=== PATIENT | male | born 1970 | race African-American/Black ===

== ENCOUNTER 2020-08-27 08:02 | Emergency (ER) | payer SELFPAY ==
[~2020-08-27] VITALS: Ht 170.2 cm; Wt 66.0 kg
[2020-08-27 08:45] VITALS: BP 156/101
--- NOTE | 2020-08-27 08:47 | PHYS DOC ---
General Adult EDM: Chief Complaint: SHOULDER INJURY HPI: HPI: Patient is a 50 year old male who present to ER for evaluation of left shoulder pain, left scapular pain. Patient said he was walking down the stairs care and hit child, slipped and fell down about 6 steps, he landed on his left scapular area. Denies any head or neck injury. Complaint of pain in that area complaint of pain in his left shoulder. Patient denies elbow pain, no back pain, no pelvic pain, no lower extremity pain. Review of Systems: Review of Systems: Constitutional: Denies fever or chills. [] Eyes: Denies change in visual acuity. [] HENT: Denies nasal congestion or sore throat. [] Respiratory: Denies cough or shortness of breath. [] Cardiovascular: Denies chest pain or edema. [] GI: Denies abdominal pain, nausea, vomiting, bloody stools or diarrhea. [] : Denies dysuria. [] Musculoskeletal: Positive for left scapular pain, left shoulder pain. Integument: Denies rash. [] Neurologic: Denies headache, focal weakness or sensory changes. [] Endocrine: Denies polyuria or polydipsia. [] Lymphatic: Denies swollen glands. [] Psychiatric: Denies depression or anxiety. [] Heart Score: Risk Factors: Risk Factors: DM, Current or recent (<one month) smoker, HTN, HLP, family history of CAD, obesity. Risk Scores: Score 0 - 3: 2.5% MACE over next 6 weeks - Discharge Home Score 4 - 6: 20.3% MACE over next 6 weeks - Admit for Clinical Observation Score 7 - 10: 72.7% MACE over next 6 weeks - Early Invasive Strategies Physical Exam: PE: Constitutional: Well developed, well nourished, no acute distress, non-toxic appearance. [] HENT: Normocephalic, atraumatic, bilateral external ears normal, oropharynx moist, no oral exudates, nose normal. [] Eyes: PERRLA, EOMI, conjunctiva normal, no discharge. [] Neck: Normal range of motion, no tenderness, supple, no stridor. [] Cardiovascular:Heart rate regular rhythm, no murmur [] Lungs & Thorax: Bilateral breath sounds clear to auscultation [] Abdomen: Bowel sounds normal, soft, no tenderness, no masses, no pulsatile masses. [] Skin: Warm, dry, no erythema, no rash. [] Back: No tenderness, no CVA tenderness. [] Extremities: Left shoulder with full range of motion, tender to palpation. Left scapular area tender to palpation, no deformity noted. Neurologic: Alert and oriented X 3, normal motor function, normal sensory function, no focal deficits noted. [] Psychologic: Affect normal, judgement normal, mood normal. [] EKG: EKG: [] Radiology/Procedures: Radiology/Procedures: [][place] [id number] IMAGING REPORT Signed PATIENT: VIRAL JUDGE: [id number] : 1970 LOCATION: ER AGE: 50 SEX: M EXAM STATUS: REG ER ORD. PHYSICIAN: ARNIE GIBBONS DO REASON: FELL, SCAPULAR INJURED PROCEDURE: SCAPULA LEFT XR SHOULDER_LEFT 2+ VIEWS, XR SCAPULA 2+ VIEWS_LT Clinical Indication: Reason: FELL, LEFT SHOULDER INJURED scapular injury./ Comparison: None. Findings: There is no acute fracture or dislocation of the shoulder. The acromioclavicular and glenohumeral joints are intact. The visualized lung is clear. There is no evidence of a displaced rib fracture. There is no soft tissue abnormality. There is no acute fracture of the scapula. IMPRESSION: No acute fracture or dislocation. Electronically signed by: Vinny Devries MD (08/27/2020 8:53 AM) [id number] DICTATED and SIGNED BY: VINNY DEVRIES MD DATE: 08/27/20 [id number] [address] [address] IMAGING REPORT Signed PATIENT: VIRAL JUDGE: [id number] : 1970 LOCATION: ER AGE: 50 SEX: M EXAM STATUS: REG ER ORD. PHYSICIAN: ARNIE GIBBONS DO REASON: FELL, LEFT SHOULDER INJURED PROCEDURE: SHOULDER 2+V LEFT XR SHOULDER_LEFT 2+ VIEWS, XR SCAPULA 2+ VIEWS_LT Clinical Indication: Reason: FELL, LEFT SHOULDER INJURED scapular injury./ Comparison: None. Findings: There is no acute fracture or dislocation of the shoulder. The acromioclavicular and glenohumeral joints are intact. The visualized lung is clear. There is no evidence of a displaced rib fracture. There is no soft tissue abnormality. There is no acute fracture of the scapula. IMPRESSION: No acute fracture or dislocation. Electronically signed by: Vinny Devries MD (08/27/2020 8:53 AM) [id number] DICTATED and SIGNED BY: VINNY DEVRIES MD DATE: 08/27/20 [id number] 0 Course & Med Decision Making: Course & Med Decision Making Pertinent Labs and Imaging studies reviewed. (See chart for details) [] Dragon Disclaimer: Dragon Disclaimer: This electronic medical record was generated, in whole or in part, using a voice recognition dictation system. Departure Departure Impression: Primary Impression: Contusion of left scapular region Additional Impression: Contusion of shoulder, left Disposition: 01 DC HOME SELF CARE/HOMELESS Condition: STABLE Referrals: UNKNOWN PCP NAME (PCP) FOLLOW UP WITH YOUR DOCTOR NEEDED Patient Instructions: Contusion Additional Instructions: Thank you for visiting our Emergency Department. We appreciate you trusting us with your care. If any additional problems come up don't hesitate to return to visit us. Please follow up with your primary care provider so they can plan additional care if needed and know about the problem that you had. If symptoms worsen come back to the Emergency Department. Any concerning symptoms that start such as chest pain, shortness of air, weakness or numbness on one side of the body, running high fevers or any other concerning symptoms return to the ER. Scripts Naproxen Sodium (ANAPROX DS) 550 Mg Tablet 1 TAB PO BID PRN for PAIN for 15 Days, #30 TAB 0 Refills Prov: ARNIE GIBBONS DO 08/27/20 ARNIE GIBBONS DO Aug 27, 2020 08:47
--- NOTE | 2020-08-27 08:55 | RAD ---
XR SHOULDER_LEFT 2+ VIEWS, XR SCAPULA 2+ VIEWS_LT Clinical Indication: Reason: FELL, LEFT SHOULDER INJURED scapular injury./ Comparison: None. Findings: There is no acute fracture or dislocation of the shoulder. The acromioclavicular and glenohumeral juan nts are intact. The visualized lung is clear. There is no evidence of a displaced rib fracture. There is no soft tissue abnormality. There is no acute fracture of the scapula. IMPRESSION: No acute fracture or dislocation. Electronically signed by: Vinny Devries MD (08/27/2020 8:53 AM) [id number]
--- NOTE | 2020-08-27 08:56 | RAD ---
XR CHEST 1V Clinical Indication: Reason: FELL, SCAPULAR INJURED / Spl. Instructions: / History: Comparison: None. Findings: The cardiomediastinal silhouette is normal. Lungs are clear. There is no pneumothorax. No pleural eff usion is appreciated. No acute bone abnormality. IMPRESSION: No acute cardiopulmonary process. Electronically signed by: Vinny Devries MD (08/27/2020 8:54 AM) [id number]
[2020-08-27] MEDS ORDERED: IBUPROFEN 400 MG TABLET. PO ONE (09:00)
[2020-08-27] MEDS ORDERED: ACETAMINOPHEN 500 MG TABLET PO ONE (09:00)
[2020-08-27] MEDS ORDERED: NAPR-682 PO (09:19)
== END 2020-08-27 09:24 | disposition home or self-care (01) ==
LOC: ER 08:02
DX: S40.012A Contusion of left shoulder, initial encounter (principal); W01.0XXA Fall on same level from slipping, tripping and stumbling without subsequent striking against object, initial encounter; Y93.89 Activity, other specified; Y92.89 Other specified places as the place of occurrence of the external cause; Y99.8 Other external cause status
CPT/HCPCS: 71045; 73010; 73030; 99284